=== PATIENT | male | born 1970 | race Caucasian/White ===

== ENCOUNTER 2019-07-04 11:58 | Outpatient (CLI) | payer OTHER, SELFPAY ==
--- NOTE | ~2019-07-04 | US_ITS ---
EXAMINATION: US scrotum EXAM DATE: 07/04/2019 12:28 INDICATION: Right testicular swelling. TECHNIQUE: Multiple grayscale and Doppler images of the testicles and scrotum were obtained bilateral ly. Comparison is made to prior examination from 04/05/2014. FINDINGS: Right testicle measures 5.4 x 2.7 x 4.1 cm and is morphologically normal. Low resistance Doppler ashleigh w confirmed. The epididymis is unremarkable. There is small hydrocele. Left testicle measures 5.3 x 2.6 x 3.4 cm and is morphologically normal. Low resistance Doppler flow confirmed. The epididymis is unremarkable. There is small hydrocele. IMPRESSION: 1. Small bilateral hydroceles. Reviewed, dictated and finalized at location A. SETTER
== END 2019-07-04 11:59 | disposition home or self-care (01) ==
LOC: CHSIMG 12:00
PROVIDERS: PCP Internal Medicine; Visit Provider Internal Medicine
DX: N50.89 Other specified disorders of the male genital organs (principal)
CPT/HCPCS: 76870

== ENCOUNTER 2022-06-25 07:40 | Outpatient (CLI) | payer OTHER, SELFPAY ==
--- NOTE | ~2022-06-25 | CT_ITS ---
EXAMINATION: CT abdomen pelvis w con INDICATION: Right lower quadrant pain TECHNIQUE: Computed tomographic images of the abdomen and pelvis were obtained after the administrati on of 100 cc of Omnipaque 350 intravenous contrast. The dose-length product (DLP) was 229.48 mGy-cm. Automated exposure control and iterative reconstruction technique were employed. COMPARISON: 04/05/2014 FINDINGS: Minimal dependent atelectasis is present in the lung bases. The heart size is normal. Cysts of the liver measure up to 10 mm in the right hepatic lobe. Punctate calcifications in an otherwise normal spleen likely represent healed granulomatous disease. Stones are present in the nondistended g allbladder. The pancreas and adrenal glands are normal. The kidneys are unremarkable. There is calcif ied atherosclerosis of the aorta. No pathologically enlarged abdominal or pelvic lymph nodes are iden tified. There is mild lumbar spondylosis. IMPRESSION: 1. Cholelithiasis without evidence of cholecystitis. Reviewed, dictated and finalized at location B. 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
--- NOTE | ~2022-06-25 | US_ITS ---
EXAMINATION: US soft tissue UE RT DATE: 06/25/2022 08:26 INDICATION: Right periscapular mass. TECHNIQUE: Multiple grayscale and Doppler ultrasound images of the right upper extremity were obtaine d. COMPARISON: None FINDINGS: There is no abnormal mass in the patient's area of concern. IMPRESSION: 1. No abnormal mass in the patient's area of concern. Reviewed, dictated and finalized at location A. 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
== END 2022-06-25 07:41 | disposition home or self-care (01) ==
LOC: CHSIMG 07:42
PROVIDERS: PCP Internal Medicine; Visit Provider Internal Medicine
DX: R22.2 Localized swelling, mass and lump, trunk (principal); R10.31 Right lower quadrant pain; K80.20 Calculus of gallbladder without cholecystitis without obstruction
CPT/HCPCS: 74177; 76882; Q9967

== ENCOUNTER 2022-07-26 15:44 | Outpatient (CLI) | payer OTHER, SELFPAY ==
[2022-07-26 18:27] LABS: Basophils Absolute Auto 0.1 K/mm3 (0.0-0.1); Basophils Percent Auto 0.8 % (0.2-1.2); Eosinophils Percent Auto 0.3 % (0-4.4); Hematocrit 41.4 % (42.0-52.0); Hemoglobin 14.5 g/dL (14.0-18.0); Immature Granulocyte Absolute 0.01 K/mm3 (0.00-0.031); Immature Granulocyte Percent A 0.2 % (0-0.5); Lymphocytes Absolute Auto 2.34 K/mm3 (0.9-3.2); Lymphocytes Percent Auto 37.6 % (18.3-44.2); Mean Corpuscular Hemoglobin 32.9 pg (26-34); Mean Corpuscular Volume 93.9 fl (80-100); Mean Platelet Volume 10.9 fl (7.4-10.4); Monocytes Absolute Auto 0.4 K/mm3 (0.1-0.6); Monocytes Percent Auto 6.7 % (2.6-8.5); Neutrophils Absolute Auto 3.4 K/mm3 (1.3-6.7); Neutrophils Percent Auto 54.4 % (45.5-73.1); Platelet Count Result 152 k/mm3 (150-375); Red Blood Count 4.41 M/mm3 (4.6-6.20); White Blood Count 6.2 K/mm3 (4.5-10.0)
[2022-07-26 20:20] LABS: Alanine Aminotransferase 24 U/L (6-50); Albumin Level 4.8 g/dL (3.5-5.1); Alkaline Phosphatase 66 U/L (38-126); Aspartate Amino Transferase 38 U/L (17-59); Bilirubin,Total 0.8 mg/dL (0.2-1.3)
== END 2022-07-26 15:45 | disposition home or self-care (01) ==
LOC: ANHGOSHLAB 15:45
PROVIDERS: PCP Internal Medicine; Visit Provider Surgery
DX: K80.20 Calculus of gallbladder without cholecystitis without obstruction (principal)
CPT/HCPCS: 36415; 80076; 85025

== ENCOUNTER 2022-07-28 07:25 | Day surgery (SDC) | payer OTHER, SELFPAY ==
[2022-07-23 15:15] VITALS: BMI 23.8
[2022-07-26 09:57] VITALS: BMI 23.5
[2022-07-28] VITALS (7 sets, daily range): BP systolic 110–123; BP diastolic 65–89; PULSE 58–75; RESP 16–20; TEMP 36.2–36.9; O2SAT 96–100
[2022-07-28] MEDS: ACETAMINOPHEN 500 MG TABLET 1000 MG PO (07:45)
[2022-07-28] MEDS: LACTATED RINGERS 1,000 ML 30 ML IV CONT ×2 (07:50→10:22)
--- NOTE | 2022-07-28 08:26 | WPDHPUPDATE1 ---
History and Physical Update Update Date/Time: 07/28/22 08:26 History and Physical has been reviewed, including an updated exam of the patient. There are NO changes in the patient's condition. Risks, benefits, and alternatives have been discussed and questions answered. Patient agrees to proceed with procedure.
--- NOTE | 2022-07-28 08:37 | WPDANESEPPF ---
Anes - Initial Pre Proc Eval Procedure: Operation Date: 07/28/22 09:00 Proposed Procedures p Laparoscopic Cholecystectomy - Kvng Medrano DO Date/Time: 07/28/22 08:37 Surgeon: Kvng Medrano DO Pre Op Diagnosis: Symptomatic Cholelithiasis Patient Data Age: 52 Gender: M Height: 1.68 m Weight: 66.5 kg Last Vital Signs Temp 36.9 C 07/28/22 07:39 Pulse 65 07/28/22 07:39 Resp 18 07/28/22 07:39 BP 113/70 07/28/22 07:39 Pulse Ox 99 07/28/22 07:39 O2 Del Method Room Air 07/28/22 07:39 Allergies Allergy/AdvReac Type Severity Reaction Status Date / Time No Known Allergies Allergy Verified 07/28/22 07:39 Home Medications Medication Instructions Recorded Confirmed Type cholecalciferol (vitamin D3) 25 25 mcg PO DAILY 07/21/22 07/28/22 History mcg (1,000 unit) capsule Patient hx anesthesia problems: none Family hx anesthesia problems: none Results Review: All pre-operative results and documents have been reviewed as part of the pre-operative evaluation. 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 Informed Consent: The patient's anesthetic plan and its attendant risks and benefits were discussed with the patient/family/POA. Questions were solicited and answers provided to the satisfaction of the patient/family/POA.
[2022-07-28] MEDS: ceFAZolin SODIUM 2 GM/20 ML SW SYRINGE IV PUSH (08:38)
--- NOTE | 2022-07-28 09:51 | W.PM.PROC2 ---
Procedure Note - Detailed Date of Procedure 07/28/22 Pre-op Diagnosis Symptomatic Cholelithiasis Post-op Diagnosis Other ( Chronic calculous cholecystitis) Procedure Performed Laparoscopic cholecystectomy Surgeon Kvng Medrano DO Anesthesia General and Local (0.5% bupivacaine) Indications This is a 52-year-old man who presented with right upper quadrant abdominal pain intermittently over the past year. He does notice that fried food causes some of the symptoms. He recently had a CT of his abdomen and pelvis which showed evidence of cholelithiasis without evidence of cholecystitis. Preoperative liver enzymes were normal. Discussions were made with the patient about treatment options and decision was made to proceed with laparoscopic cholecystectomy. Findings Laparoscopic cholecystectomy was performed. The gallbladder had a few pericholecystic adhesions and was slightly dilated. There was chronic gallbladder wall thickening. The patient had multiple large gallstones within the gallbladder. The cystic duct appeared normal in size. No other abnormalities were noted. The gallbladder was removed and sent to the lab for pathology. Description of Procedure Procedure as well as risks, benefits, and alternatives were discussed with patient. Written consent was obtained and placed in chart prior to procedure. The patient was brought back to surgical suite. Patient was placed in supine position on operating table. Time-out was done to confirm patient and procedure. Patient was then intubated by the anesthesia department. Abdomen was prepped and draped in sterile fashion using chlorhexidine prep. 0.5% bupivacaine with epinephrine was infiltrated at each site of incision. An 11 millimeter vertical incision was made at the inferior portion of the umbilicus using a 15 blade scalpel. Blunt dissection was carried down to the linea alba. The linea alba was then incised using a 15 blade scalpel. The peritoneum was then bluntly entered. An 11 millimeter trocar was inserted and carbon dioxide insufflation was used to create a pneumoperitoneum. The camera was inserted and the abdomen was inspected. The patient was placed in reverse Trendelenberg position and rotated slightly to the left. A 5 millimeter incision was made in the epigastric region, and a 5 millimeter trocar was inserted under direct visualization. Two 5 millimeter incisions were made in the right upper quadrant, and two 5 millimeter trocars were inserted under direct visualization. The gallbladder was identified and grasped at the fundus and retracted superiorly. It was then grasped at the infundibulum retracted laterally. Careful dissection around the neck of the gallbladder was performed using blunt dissection with a [place] grasper and hook electrocautery. The cystic duct was identified, and a window was created behind it. The cystic artery was also identified and a window was created behind it. The critical view of safety was identified, visualizing the cystic duct running directly into the neck of the gallbladder, and the cystic artery running directly into the wall of the gallbladder. A 5 millimeter clip grey stock recorder was then used to place 2 clips proximally and 1 clip distally on both the cystic duct and cystic artery. They were then both transected using endoscopic scissors. Once safely away from the aden hepatitis, the gallbladder was dissected free from the liver bed using hook electrocautery. Hemostasis was achieved along the way. The gallbladder was removed completely and then removed through the umbilical port. The liver bed was then inspected. Hemostasis appeared adequate, and our clips appeared secure. The area was gently irrigated with sterile saline. No other abnormalities were seen. The patient was flattened out in bed, and 1 final inspection was made around the abdominal cavity. The ports were then removed under direct visualization, the camera was removed, and the pneum
[2022-07-28] MEDS: MEPERIDINE HCL INJ (*CRX) 100 MG/ML AMPUL 25 MG IV PUSH (10:06)
--- NOTE | 2022-07-28 10:17 | SUR.PHASEI ---
0953; PT SHIVERING. DR NICHOLSON AT BEDSIDE, HE ORDERED DEMEROL 25MG IVP
--- NOTE | 2022-07-28 10:19 | SUR.PHASEI ---
PT NO LONGER SHIVERING.
[2022-07-28] MEDS: fentaNYL CITRATE INJ (*CRX) 100 MCG/2 ML VIAL 25 MCG IV PUSH ×4 (10:21→10:41)
--- NOTE | 2022-07-28 10:32 | SUR.PHASEI ---
PT AWAKE AND ALERT. DENIES NAUSEA. STATES FEELS LIKE I WAS PUNCHED IN THE GUT RATES PAIN AT 6/10
--- NOTE | 2022-07-28 10:46 | WPDANESPN ---
Anes - Prog Note Post-Op Date/Time: 07/28/22 10:46 Cardiovascular status: normal Respiratory status: normal Airway patency: baseline Mental status: baseline Post-Op hydration status: normal Vital Signs: Last Vital Signs Temp 36.3 C L 07/28/22 10:20 Pulse 58 L 07/28/22 10:20 Resp 16 07/28/22 10:20 BP 110/65 07/28/22 10:20 Pulse Ox 100 07/28/22 10:20 O2 Del Method Simple Face Mask 07/28/22 10:20 O2 Flow Rate 6 07/28/22 10:20 Pain Score (VAS): 4 I/O: Intake & Output 07/27/22 07/28/22 07/28/22 23:59 07:59 15:59 Intake Total 200 Output Total 300 Balance -100 Patient Feedback: Patient satisfied with anesthetic care.
--- NOTE | 2022-07-28 11:17 | SUR.PHASEII ---
PT AWAKE AND ALERT. STATES PAIN MUCH IMPROVED AT 07/23. EATING CRACKERS AND DRINKING WATER. DENIES NAUSEA. FAMILY AT BEDSIDE.
== END 2022-07-28 11:38 | disposition home or self-care (01) ==
PROVIDERS: PCP Internal Medicine; Visit Provider Surgery
PROC: 0FT44ZZ Resection of Gallbladder, Percutaneous Endoscopic Approach (ICD-10-PCS; CPT 47562; principal; 2022-07-28 09:00)
DX: K80.10 Calculus of gallbladder with chronic cholecystitis without obstruction (principal)
CPT/HCPCS: 47562

== ENCOUNTER 2022-07-28 07:42 | Outpatient (NON) | payer OTHER, SELFPAY | END 2022-07-28 07:43 | disposition home or self-care (01) | LOC: ANHLAB 07-30 07:43 | PROVIDERS: PCP Internal Medicine; Visit Provider Surgery | DX: K80.20 Calculus of gallbladder without cholecystitis without obstruction (principal); K80.10 Calculus of gallbladder with chronic cholecystitis without obstruction | CPT/HCPCS: 88304 ==

== ENCOUNTER 2022-09-11 07:39 | Outpatient (CLI) | payer OTHER, SELFPAY ==
--- NOTE | 2022-09-11 07:41 | ECG_ITS ---
Measurements Intervals [place] Rate: 53 P: 78 MS: 144 QRS: 71 QRSD: 90 T: 61 QT: 384 QTc: 363 Interpretive Statements SINUS BRADYCARDIA BORDERLINE ECG NO PREVIOUS ECG AVAILABLE FOR COMPARISON Electronically Signed On 09-13-2022 6:47:53 CDT by Emerson Knapp D.O.
== END 2022-09-11 07:40 | disposition home or self-care (01) ==
LOC: CHSLAB 07:41
PROVIDERS: PCP Internal Medicine; Visit Provider Anesthesiology
DX: Z01.818 Encounter for other preprocedural examination (principal); Z87.891 Personal history of nicotine dependence; R00.1 Bradycardia, unspecified
CPT/HCPCS: 93005

== ENCOUNTER 2022-09-15 01:05 | Day surgery (SDC) | payer OTHER, SELFPAY ==
[2022-09-07 11:25] VITALS: BMI 22.6
--- NOTE | 2022-09-07 11:30 | PC.NURSE ---
Report to the Outpatient Waiting Room, entrance under the green pavilion located off [facility], at time 1030 on date 09/15/22. Planned Procedure Time: 1230. Time changes happen often and if your time is changed the preop area will call you the afternoon before. - You and your visitor will be asked to self-screen and do not enter if you have any COVID symptoms. - A mask is optional within the hospital at this time. Patients may have clear liquids (water, carbonated beverages, clear teas, apple juice) until 3 hours prior to surgery with a maximum of 20 ounces. - No food from midnight until time of surgery Take the following medications with a SIP of water the morning of surgery: NONE DO NOT STOP ANY OF YOUR OTHER PRESCRIPTION MEDICATIONS PRIOR TO SURGERY ?EXCEPT THE FOLLOWING Medications to discontinue per physician: VITAMINS Date to take last dose: 09/11/22 Please no make-up, nail congolese, hairspray, perfume, deodorant, or body powder the day of surgery. No jewelry (including any body piercings) or valuables the day of surgery, leave them at home. Please take a shower or bath the night before, or the morning of, surgery with an antibacterial soap (HIBICLENS). Wear comfortable, loose fitting clothing. - Jewelry must be removed prior to entering the operating room. Rings and piercings that are not removed may be cut off. - The hospital will not accept responsibility for valuables. - Please leave all valuables, including medications, at home the day of surgery. If you are going home after surgery, a licensed production truck driver must drive you home. - NO public transportation without another adult if you receive anesthesia. - We recommend that an adult stay with you for 24 hours following discharge. - We also recommend that you do not drive, make important decision, drink alcoholic beverages, or take any drugs that were not prescribed by your health care provider for at least 24 hours after your discharge time. Follow any additional instructions given to you from your surgeon. If you or anyone in your household have experienced Covid symptoms in the past week, please notify your surgeon or the nurse liaison at the phone number below for possible testing. Telephone instructions given to PT - JOSE GHOTRA and asked if any additional questions and then verbalized understanding. Patient advised to call surgeon office or pre surgery nurse liaison [phone] if any additional questions.
[2022-09-15] VITALS (10 sets, daily range): BP systolic 106–138; BP diastolic 60–77; PULSE 51–85; RESP 14–20; TEMP 36.2–36.4; O2SAT 99–100
[2022-09-15] MEDS: ACETAMINOPHEN 500 MG TABLET 1000 MG PO (10:52)
[2022-09-15] MEDS: KETOROLAC 15 MG/ML VIAL (*BKC) IV PUSH (11:06)
[2022-09-15] MEDS: LACTATED RINGERS 1,000 ML 30 ML IV CONT ×2 (11:30→13:21)
--- NOTE | 2022-09-15 11:32 | WPDHPUPDATE1 ---
History and Physical Update Update Date/Time: 09/15/22 11:32 History and Physical has been reviewed, including an updated exam of the patient. There are NO changes in the patient's condition. Risks, benefits, and alternatives have been discussed and questions answered. Patient agrees to proceed with procedure.
--- NOTE | 2022-09-15 11:33 | P.PNAN_ITS ---
Anes - Initial Pre Proc Eval Procedure: Operation Date: 09/15/22 12:30 Proposed Procedures p Laparoscopic Bilateral Inguinal Hernia Repair with mesh, Davinci Assisted - Kvng Medrano DO Date/Time: 09/15/22 11:33 Surgeon: Kvng Medrano DO Pre Op Diagnosis: Ariel Ing Hernia Patient Data Age: 52 Gender: M Height: 1.68 m Weight: 62.5 kg Last Vital Signs Temp 36.4 C L 09/15/22 10:49 Pulse 51 L 09/15/22 10:49 Resp 16 09/15/22 10:49 BP 138/69 09/15/22 10:49 Pulse Ox 100 09/15/22 10:49 O2 Del Method Room Air 09/15/22 10:49 Allergies Allergy/AdvReac Type Severity Reaction Status Date / Time No Known Allergies Allergy Verified 09/15/22 10:51 Home Medications Medication Instructions Recorded Confirmed Type cholecalciferol (vitamin D3) 25 25 mcg PO DAILY 07/21/22 09/15/22 History mcg (1,000 unit) capsule Patient hx anesthesia problems: none Family hx anesthesia problems: none Results Review: All pre-operative results and documents have been reviewed as part of the pre- operative evaluation. [facility]LY [facility] Surgical History Surgical History S/P cholecystectomy lap maryam 07/28/22 Family History Family History Other Cerebrovascular accident Family history of cardiovascular disease Social History Social History Smoking packs per day: 2 Smoking cigarettes per day: 40.0 Years smoked: 20 Smoking pack-years: 40.00 Smoking status: Former smoker Tobacco type: cigarettes Smoking end date: 05/16/17 Alcohol intake: current Drinks per week: 1 Alcohol use details: rare Substance use: current Substance use type: marijuana Living arrangements: with family Additional living arrangements comments: GIRLFRIEND Occupation/Education: occupation 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 Informed Consent: The patient's anesthetic plan and its attendant risks and benefits were discussed with the patient/family/POA. Questions were solicited and answers provided to the satisfaction of the patient/family/POA.
[2022-09-15] MEDS: ceFAZolin 2 GM/D5W 50 ML 2 GM/50 ML BAG IVPB (11:49)
[2022-09-15] MEDS: BUPIVACAINE/EPINEPHRINE 0.5% 50 ML VIAL 30 ML INFILTRATE (12:38)
--- NOTE | 2022-09-15 13:08 | W.PM.PROC2 ---
Procedure Note - Detailed Date of Procedure 09/15/22 Pre-op Diagnosis Bilateral inguinal hernia Post-op Diagnosis Same (Bilateral direct inguinal hernia) Procedure Performed Laparoscopic bilateral inguinal hernia repair with mesh, da Tu assisted Surgeon Kvng Medrano DO Anesthesia General and Local (0.5% bupivacaine with epinephrine) Indications This is a 52-year-old man who presented with bilateral groin pain for the past several years. He has had worsening right groin pain over the past 6 months. Was to have bilateral inguinal hernias on exam. Discussions were made with the patient about treatment options and decision was made to proceed with robotic assisted laparoscopic bilateral inguinal hernia repair with mesh. Findings Laparoscopic bilateral inguinal hernia repair was performed. Patient was found to have bilateral direct inguinal hernias. The robotic transabdominal preperitoneal approach was utilized. Large 3DMax mid mesh was placed overlying each myopectineal orifice. No specimens were obtained for pathology. Description of Procedure Procedure as well as risks, benefits, and alternatives were discussed with the patient. Written consent was obtained and placed in chart prior to procedure. Patient was brought back to surgical suite. He was placed supine on operating table. Time-out was done to confirm patient and procedure. He was then intubated by Anesthesia Department. His abdomen was prepped and draped in sterile fashion using chlorhexidine prep. 0.5% bupivacaine with epinephrine was infiltrated at each location for incision. A 12 millimeter transverse incision was made just superior to the umbilicus using a 15 blade scalpel. Blunt dissection was carried out down to the linea alba. A vertical incision was made at the linea alba using a 15 blade scalpel. The peritoneum was then bluntly entered. A 12 millimeter trocar was inserted and carbon dioxide insufflation was used to create a pneumoperitoneum. A camera was inserted and the abdominal cavity was inspected. The patient was placed in slight Trendelenburg position. An 8 millimeter incision was made on the right lateral abdomen and an 8 millimeter trocar was inserted under direct visualization. Another 8 millimeter incision was made in the left lateral abdomen and an 8 millimeter trocar was inserted under direct visualization. The robotic arms were brought up to the patient's bedside and secured to the ports. The camera and instruments were inserted. I then moved over to the robotic console and took control of the camera and instruments. After careful inspection of the abdominal cavity, I began scoring the peritoneum along the right lower quadrant using scissors with electrocautery. The preperitoneal plane was entered and this was carefully dissected caudally along the inferior epigastric vessels. Careful dissection with scissors with electrocautery and blunt dissection was used to continue this dissection. I dissected far enough laterally to allow for mesh placement, and also dissected medially to identify the pubic arch and Anthony's ligament. The hernia sac was identified and carefully dissected posteriorly. The cord contents were also identified and the peritoneum was carefully dissected far enough posteriorly to allow for mesh placement. Once an adequate pocket was created, I then placed the mesh within the preperitoneal pocket and carefully unfolded it. The mesh was centered on the hernia defect with adequate overlap circumferentially. The inferior edge of the mesh was inspected to ensure that it was far enough away from the peritoneal edge. The mesh appeared in proper position overlying the entire myopectineal orifice. The mesh was secured using 3-0 Vicryl simple interrupted sutures in Anthony's ligament, the superior medial edge, and superior lateral edge of the mesh. The peritoneum was then closed over the mesh using a 3-0 V-lock running absorbable suture. I then began
[2022-09-15] MEDS: oxyCODONE HCL (*CRX) 5 MG TAB IR PO (14:57)
== END 2022-09-15 15:40 | disposition home or self-care (01) ==
PROVIDERS: Visit Provider Surgery
PROC: 8E0Y4CZ Robotic Assisted Procedure of Lower Extremity, Percutaneous Endoscopic Approach (ICD-10-PCS; CPT 49650; principal; 2022-09-15 12:30)
DX: K40.20 Bilateral inguinal hernia, without obstruction or gangrene, not specified as recurrent (principal); Z87.891 Personal history of nicotine dependence; F12.90 Cannabis use, unspecified, uncomplicated
CPT/HCPCS: 49650; S2900; 36415; 86850; 86900; 86901; A9270; C1781; J0330; J0690; J1100; J1170; J1885; J2250; J2405; J2704; J2710; J3010; J7120

== ENCOUNTER 2022-09-16 19:41 | Observation (INO) | payer OTHER, SELFPAY ==
[2022-09-16] VITALS (8 sets, daily range): BP systolic 103–124; BP diastolic 60–74; PULSE 66–87; RESP 14–23; TEMP 36.6; O2SAT 95–100
--- NOTE | ~2022-09-16 | CT_ITS ---
EXAMINATION: CT abdomen pelvis w con DATE: 09/16/2022 20:55 INDICATION: lower abdominal pain TECHNIQUE: Computed tomography (CT) of the abdomen and pelvis was performed with 100 mL Omnipaque-350 intravenous contrast. Automated exposure control and iterative reconstruction technique were employe d. The dose-length product was 246.46 mGy-cm. COMPARISON: 06/25/2022. FINDINGS: Lower thorax: Dependent atelectasis and scarring. Calcified right lower lobe hamartoma. Liver: 12 mm right lobe cyst or hemangioma. Biliary/Gallbladder: Gallbladder is absent. No bile duct dilation. Pancreas: No mass or duct dilation. Spleen: Normal. Adrenals:No mass. Kidneys: No mass, stone, or hydronephrosis. GI tract: No small or large bowel dilation. Normal appendix. Mesentery/Peritoneum: Moderate volume free air. Somewhat heterogeneous, lobulated, 14.4 x 7.2 x 15.5 cm mass in the right lower abdomen and along the pelvic sidewall, likely representing clot in the rig ht lower abdominopelvic peritoneal space. The collection displaces the bladder and sigmoid to the lef t and the cecum superiorly. Small-moderate volume intermediate density fluid more diffusely in the pe ritoneal spaces, present adjacent to the liver, spleen, the right paracolic gutter, and surrounding t he urinary bladder. No active extravasation detected. Retroperitoneum: No mass. Atherosclerotic abdominal aortic and/or arterial calcifications. Pelvis: The urinary bladder is displaced and partially decompressed. Prostatomegaly. Soft Tissues: Subcutaneous gas along the anterior abdominal wall, and the bilateral inguinal canals, consistent with the given history of bilateral inguinal hernia surgery. Bones: No acute osseous finding. IMPRESSION: 15.5 cm hematoma in the right lower and lateral abdominopelvic peritoneal space, with moderate hemope ritoneum. Findings are concerning for postoperative hemorrhage. Active extravasation was not detected during this examination. Results reported telephonically to Dr. Lorenz by Dr. Vidales at 9:17 PM on 09/16/2022. Reviewed, dictated and finalized at location K. IMPRESSION: 15.5 cm hematoma in the right lower and lateral abdominopelvic peritoneal space , with moderate hemoperitoneum. Findings are concerning for postoperative hemor rhage. Active extravasation was not detected during this examination. Results reported telephonically to Dr. Lorenz by Dr. Vidales at 9:17 PM on 2022.
--- NOTE | 2022-09-16 20:05 | ECG_ITS ---
Measurements Intervals [place] Rate: 68 P: 61 ID: [id number] QRS: 11 QRSD: 86 T: 36 QT: 344 QTc: 368 Interpretive Statements SINUS RHYTHM NORMAL ECG COMPARED TO ECG 09/11/2022 07:47:46 SINUS RHYTHM NOW PRESENT Electronically Signed On 09-17-2022 6:42:52 CDT by Emerson Knapp D.O.
[2022-09-16 20:27] LABS: Basophils Absolute Auto 0.1 K/mm3 (0.0-0.1); Basophils Percent Auto 0.5 % (0.2-1.2); Eosinophils Percent Auto 0.1 % (0-4.4); Hematocrit 34.8 % (42.0-52.0); Hemoglobin 11.7 g/dL (14.0-18.0); Immature Granulocyte Absolute 0.02 K/mm3 (0.00-0.031); Immature Granulocyte Percent A 0.2 % (0-0.5); Lymphocytes Absolute Auto 1.97 K/mm3 (0.9-3.2); Lymphocytes Percent Auto 17.5 % (18.3-44.2); Mean Corpuscular HGB Conc 33.6 g/dl (32-36); Mean Corpuscular Hemoglobin 33.3 pg (26-34); Mean Corpuscular Volume 99.1 fl (80-100); Mean Platelet Volume 11.1 fl (7.4-10.4); Monocytes Absolute Auto 0.7 K/mm3 (0.1-0.6); Monocytes Percent Auto 5.9 % (2.6-8.5); Neutrophils Absolute Auto 8.5 K/mm3 (1.3-6.7); Neutrophils Percent Auto 75.8 % (45.5-73.1); Platelet Count Result 151 k/mm3 (150-375); Red Blood Count 3.51 M/mm3 (4.6-6.20); Red Cell Distribution Width 12.8 % (11.5-14.5); White Blood Count 11.3 K/mm3 (4.5-10.0)
[2022-09-16] MEDS: SODIUM CHLORIDE 0.9% IV 1,000 ML 999 ML IV CONT ×2 (20:36→21:52)
[2022-09-16] MEDS: HYDROmorphone HCL INJ (*CRX) 1 MG/ML SYR 0.5 MG IV PUSH (20:36)
[2022-09-16 20:41] LABS: Alanine Aminotransferase 25 U/L (6-50); Albumin Level 3.8 g/dL (3.5-5.1); Alkaline Phosphatase 48 U/L (38-126); Anion Gap 2 mmol/L (8-16); Aspartate Amino Transferase 36 U/L (17-59); Bilirubin,Total 0.6 mg/dL (0.2-1.3); Blood Urea Nitrogen 10 mg/dL (9-20); Calcium 8.3 mg/dL (8.4-10.2); Carbon Dioxide 31 mmol/L (22-30); Chloride 104 mmol/L (98-107); Estimated CRCL calculation 76 ml/min; Estimated Glomerular Filt Rate > 60; Glucose 137 mg/dL (65-110); Potassium 4.3 mmol/L (3.4-5.0); Sodium 137 mmol/L (137-145)
--- NOTE | 2022-09-16 21:28 | ED.DIZZY ---
HPI - Dizziness General Chief Complaint: Syncope Stated Complaint: nausea,vomiting Time Seen by Provider: 09/16/22 19:50 History of Present Illness HPI Narrative: 52-year-old male presented the emergency department for evaluation after having a syncopal episode with associated nausea vomiting and increased lower abdominal pain. Patient had a laparoscopic bilateral indirect inguinal hernia repair yesterday. Patient states that he had worsening lower abdominal aching after the multiple episodes of emesis. Upon arrival to the emergency department patient states his nausea is improved and patient does still have lower abdominal ache. Patient states this is changed from his postop pain yesterday that was more sharp in nature. Patient states he has not passed stool but he is passing flatus. Related Data Home Medications Medication Instructions Recorded Confirmed cholecalciferol (vitamin D3) 25 25 mcg PO DAILY 07/21/22 09/15/22 mcg (1,000 unit) capsule Allergies Allergy/AdvReac Type Severity Reaction Status Date / Time No Known Allergies Allergy Verified 09/16/22 19:58 Review of Systems Review of Systems: All systems reviewed & are unremarkable except as noted in HPI and below PMFSH Surgical History Surgical History S/P cholecystectomy lap maryam 07/28/22 Family History Family History Other Cerebrovascular accident Family history of cardiovascular disease Social History Social History Smoking packs per day: 2 Smoking cigarettes per day: 40.0 Years smoked: 20 Smoking pack-years: 40.00 Smoking status: Former smoker Tobacco type: cigarettes Smoking end date: 05/16/17 Alcohol intake: current Drinks per week: 1 Alcohol use details: rare Substance use: current Substance use type: marijuana Living arrangements: with family Additional living arrangements comments: GIRLFRIEND Occupation/Education: occupation Additional occupation/education comments: [employer] Spiritual care concerns: No Exam Narrative: APPEARANCE: Well appearing, no pain, no distress, well-nourished. HEAD: normocephalic, atraumatic. EYES: PERRLA/EOMI, conjunctivae clear. NOSE: Normal no drainage RESPIRATORY: Airway patent, respirations nonlabored. Clear to auscultation bilaterally, no rales, rhonchi, wheezing. CARDIOVASCULAR: Regular rate and rhythm without murmurs rubs or gallops. ABDOMINAL: Soft, no peritonitis, mild lower abdominal tenderness, well-appearing trocar sites, bowel sounds MUSCULOSKELETAL: Moves all extremities. Strength/ROM intact, No edema, No calf tenderness. NEURO: Alert. Cranial nerves II through XII intact. Grossly intact SKIN: Warm, dry. Normal Color Course Course Emergency Course: 52-year-old male presented to the ED for evaluation of syncope and nausea vomiting and increased abdominal pain after recent surgery. Patient does have a mild leukocytosis of 11.3. Patient's hemoglobin is 11.7. Most recent measurement in July was 14. Patient has CMP similar to baseline. CT scan was ordered to evaluate the change in abdominal pain and does show evidence of a large hematoma with no active bleeding. This was discussed with Dr. Knott and he recommending admit the patient with repeat H&H, patient was admitted to Dr Medrano. Type and screen was ordered and patient had a second IV ordered. Patient was treated with 2 L normal saline. Patient and family were updated of the results of the CT scan and plan for admission and observation. Vital Signs Vital signs: Vital Signs Temperature 97.8 F 09/16/22 19:53 Pulse Rate 74 09/16/22 19:53 Respiratory Rate 16 09/16/22 19:53 Blood Pressure 124/74 09/16/22 19:53 Pulse Oximetry 100 09/16/22 19:53 Oxygen Delivery Room Air 09/16/22 19:53 Temperature 97.8
[2022-09-16 22:43] LABS: Hematocrit 29.5 % (42.0-52.0); Hemoglobin 9.9 g/dL (14.0-18.0)
[2022-09-17] VITALS (7 sets, daily range): BP systolic 118–136; BP diastolic 57–68; PULSE 62–93; RESP 16–20; TEMP 36.7–37.1; O2SAT 94–98; BMI 23.4
[2022-09-17] MEDS: SODIUM CHLORIDE 0.9% IV 1,000 ML 100 ML IV CONT (00:41)
--- NOTE | 2022-09-17 00:44 | ADMGEN ---
This patient, Alexis Hoffman, was admitted to IMU Room 209-01. Patient/family oriented to hospital policies and general routines including ID bracelet, bed and alarms, visiting hours, pain management, procedures, bathroom and other care routines, personal items, smoking policy, room service/diet, and visiting hours. Information on how to activate the Rapid Response Team has been discussed. Patient/Family are encouraged to report perceived risks to care and to ask questions if they do not understand what they are told or what they should do.
[2022-09-17] MEDS: HYDROmorphone HCL INJ (*CRX) 1 MG/ML SYR 0.5 MG IV PUSH ×2 (00:54→05:38)
[2022-09-17 05:23] LABS: Hematocrit 29.5 % (42.0-52.0); Hemoglobin 9.9 g/dL (14.0-18.0)
[2022-09-17 08:35] LABS: Glucose Point of Care 86 mg/dl (65-105)
[2022-09-17] MEDS: polyethylene glycoL 3350 17 GM POWD.PACK PO (09:42)
[2022-09-17] MEDS: HYDROcodone/acetaminophen (*CRX) 5-325 MG TABLET 1 TAB PO (09:47)
[2022-09-17 14:28] LABS: Hematocrit 29.3 % (42.0-52.0); Hemoglobin 9.8 g/dL (14.0-18.0)
[2022-09-17 14:37] LABS: Anion Gap 4 mmol/L (8-16); Blood Urea Nitrogen 8 mg/dL (9-20); Calcium 8.2 mg/dL (8.4-10.2); Carbon Dioxide 28 mmol/L (22-30); Chloride 105 mmol/L (98-107); Estimated CRCL calculation 96 ml/min; Estimated Glomerular Filt Rate > 60; Glucose 100 mg/dL (65-110); Potassium 4.1 mmol/L (3.4-5.0); Sodium 137 mmol/L (137-145)
--- NOTE | 2022-09-17 15:41 | PM.SD2 ---
Same Day Admit/Disch: HPI History of Present Illness Chief complaint: Postop Bleeding, syncope Narrative: Alexis Hoffman is a 52 year old male who presented to the emergency department last night with a syncopal episode. He is status post robotic assisted laparoscopic bilateral inguinal hernia repair with mesh on 09/15/2022. He had had a bowel movement since surgery and took some magnesium citrate to try to get his bowels moving. This caused him to become nauseated. He was experiencing some nausea and vomiting on postop day 1 and then began feeling worsening pain in the lower abdomen. He went to get up and felt lightheaded and had a syncopal episode. He did not fall down but was able to slide down on the couch and avoid any injuries. He was brought to the emergency department by EMS. He was noted to be slightly anemic and CT of his abdomen and pelvis was obtained which showed evidence of a 15 cm hematoma in the right lower quadrant. No active extravasation was identified. He was placed on telemetry and admitted for further observation and treatment. [facility] Surgical History Surgical History (Updated 09/17/22 @ 15:50 by Kvng Medrano DO) S/P cholecystectomy lap maryam 07/28/22 Status post bilateral inguinal hernia repair Family History Family History Other Cerebrovascular accident Family history of cardiovascular disease Social History Social History Smoking packs per day: 2 Smoking cigarettes per day: 40.0 Years smoked: 20 Smoking pack-years: 40.00 Smoking status: Former smoker Tobacco type: cigarettes Smoking end date: 05/16/17 Alcohol intake: never Drinks per week: 1 Alcohol use details: rare Substance use: current Substance use type: marijuana Lack of Transportation: No Lack of Food: Never True Current Housing: I Have Housing Concerned About Future Housing: No Difficulty Paying Gas/Electric Bills: No Difficulty Paying for Meds: No Currently Unemployed: No Education: High School Diploma/GED Difficulty w/ Childcare or Family Care: No Living arrangements: with family Additional living arrangements comments: GIRLFRIEND Occupation/Education: occupation Additional occupation/education comments: [employer]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 [employer] Spiritual care concerns: No Same Day Admit/Disch: Med Pre-admit Medications Home Medications Medication Instructions Recorded Confirmed Type cholecalciferol (vitamin D3) 25 25 mcg PO DAILY 07/21/22 09/17/22 History mcg (1,000 unit) capsule hydrocodone 5 mg-acetaminophen 325 1 tablet PO Q4H PRN pain #10 tabs 09/15/22 09/17/22 Rx mg tablet Exam Const: General: alert; No acute distress Orientation/consciousness: patient oriented x3 Limitations: no limitations HENMT: Head: normocephalic and atraumatic Ears: hearing grossly normal bilaterally Face/Nose/Sinus: Normal external nose present and Normal nares present Mouth: Yes Normal oral and palatal mucosa present and Yes moist mucous membranes Eyes: General: appearance normal, both eyes and all related structures Conjunctivae: conjunctivae normal Sclera: sclerae normal Pupils: Equal, round and reactive pupils present EOM: EOMs intact bilaterally Neck: Neck: normal visual inspection, full ROM, no lymphadenopathy, supple and no JVD Lymphatic: no lymphadenopathy noted Chest: Chest palpation & inspection: normal inspection of the chest Resp: Effort & Inspection: normal respiratory effort and able to speak in complete sentences Auscultation: clear to auscultation bilaterally Percussion: percussion normal Cardio: Jugular venous distension: no JVD Rate: regular rate Rhythm: regular rhythm Heart sounds: S1 normal heart sound present and S2 normal heart sound present Peripheral pulses: Peripheral pulses 2+ throughout GI: Inspection: normal to inspection and incision (Incisions heal
== END 2022-09-17 16:11 | disposition home or self-care (01) ==
LOC: ANHED 21:38 → ANHIMU 09-17 00:05
PROVIDERS: Admitting Provider Surgery; Emergency Provider Emergency Medicine; Visit Provider Surgery
DX: R55 Syncope and collapse (principal); M96.830 Postprocedural hemorrhage of a musculoskeletal structure following a musculoskeletal system procedure; Z98.890 Other specified postprocedural states; R10.30 Lower abdominal pain, unspecified; Z87.891 Personal history of nicotine dependence; F10.90 Alcohol use, unspecified, uncomplicated; F12.90 Cannabis use, unspecified, uncomplicated; Z79.899 Other long term (current) drug therapy
CPT/HCPCS: 36415; 74177; 80048; 80053; 82948; 85014; 85018; 85025; 93005; 96361; 96374; 96376; 99285; A9270; G0378; J1170; J7030; Q9967

== ENCOUNTER 2023-08-17 08:59 | Outpatient (CLI) | payer OTHER, SELFPAY ==
[2023-08-17 09:09] LABS: Basophils Absolute Auto 0.04 K/mm3 (0.00-0.10); Basophils Percent Auto 0.8 % (0.0-1.0); Eosinophils Absolute Auto 0.06 K/mm3 (0.02-0.50); Eosinophils Percent Auto 1.2 % (1.0-6.0); Hematocrit 44.4 % (40.0-54.0); Hemoglobin 15.2 g/dL (14.0-18.0); Immature Granulocyte Absolute 0.01 K/mm3 (0.00-0.00); Immature Granulocyte Percent A 0.2 % (0.0-0.0); Lymphocytes Absolute Auto 1.81 K/mm3 (1.10-4.50); Lymphocytes Percent Auto 34.7 % (18.0-42.0); Mean Corpuscular HGB Conc 34.2 g/dL (32-36); Mean Corpuscular Hemoglobin 32.7 pg (27.0-31.0); Mean Corpuscular Volume 95.5 fL (78.0-102.0); Mean Platelet Volume 10.3 fl (8.7-11.0); Monocytes Absolute Auto 0.44 K/mm3 (0.10-0.90); Monocytes Percent Auto 8.4 % (2.0-11.0); Neutrophils Absolute Auto 2.85 K/mm3 (1.70-7.20); Neutrophils Percent Auto 54.7 % (50.0-70.0); Platelet Count Result 159 K/mm3 (150-420); Red Blood Count 4.65 M/mm3 (4.70-6.10); Red Cell Distribution Width 12.2 % (11.6-14.4); White Blood Count 5.2 K/mm3 (4.8-10.8)
[2023-08-17 09:51] LABS: Alanine Aminotransferase 30 U/L (16-63); Albumin Level 4.3 g/dL (3.4-5.0); Alkaline Phosphatase 73 U/L (46-116); Anion Gap 8 mmol/L (4-12); Aspartate Amino Transferase 18 U/L (15-37); Bilirubin,Total 0.6 mg/dL (0.00-1.00); Blood Urea Nitrogen 18 mg/dL (7-18); Calcium 9.2 mg/dL (8.5-10.1); Carbon Dioxide 31 mmol/L (21-32); Chloride 104 mmol/L (98-108); Cholesterol 174 mg/dL (0-200); Estimated Glomerular Filt Rate > 60; Glucose 97 mg/dL (70-99); HDL Direct 55 mg/dL (40-60); LDL Cholesterol Calculated 99 mg/dL (<130); Osmolality Calculated 297 mOsm/kg (285-295); Potassium 4.5 mmol/L (3.5-5.1); Sodium 143 mmol/L (136-145); Total Protein 6.9 g/dL (6.4-8.2); Triglycerides 98 mg/dL (0-150)
[2023-08-17 10:05] LABS: Thyroid Stimulating Hormone Reflex 2.09 u/IU/mL (0.36-3.74)
== END 2023-08-17 09:00 | disposition home or self-care (01) ==
LOC: CHSLAB 09:01
PROVIDERS: PCP Family Medicine; Visit Provider Family Medicine
DX: E03.9 Hypothyroidism, unspecified (principal); F32.9 Major depressive disorder, single episode, unspecified
CPT/HCPCS: 36415; 80053; 80061; 84443; 85025